=== PATIENT | male | born 1980 | race Caucasian/White ===

== ENCOUNTER 2017-11-11 16:42 | Emergency (ER) | payer MEDICAID ==
[~2017-11-11] VITALS: Ht 175.3 cm; Wt 81.6 kg
[2017-11-11 17:49] VITALS: Ht 175.3 cm; Wt 81.6 kg
[2017-11-11 21:28] VITALS: BP 147/94
== END 2017-11-11 21:28 | disposition home or self-care (01) ==
LOC: ED 16:42
DX: S39.012A Strain of muscle, fascia and tendon of lower back, initial encounter (principal); X58.XXXA Exposure to other specified factors, initial encounter; Y93.89 Activity, other specified; Y99.8 Other external cause status; Y92.89 Other specified places as the place of occurrence of the external cause
CPT/HCPCS: J1885

== ENCOUNTER 2020-06-18 14:03 | Emergency (ER) | payer MEDICAID ==
[~2020-06-18] VITALS: Ht 175.3 cm; Wt 105.2 kg
[2020-06-18 14:17] VITALS: Ht 175.3 cm; Wt 105.2 kg
[2020-06-18 15:14] VITALS: BP 139/79
== END 2020-06-18 15:14 | disposition home or self-care (01) ==
LOC: ED 14:03
DX: S39.012A Strain of muscle, fascia and tendon of lower back, initial encounter (principal); X50.0XXA Overexertion from strenuous movement or load, initial encounter; Y93.89 Activity, other specified; Y92.89 Other specified places as the place of occurrence of the external cause; Y99.8 Other external cause status
CPT/HCPCS: J1885